=== PATIENT | female | born 1950 | race Hispanic/Latino ===

== ENCOUNTER → 2024-01-20 | Outpatient (CLI) | payer MEDICARE | END | disposition home or self-care (01) | LOC: SHCH 13:12 | PROVIDERS: ATTEND Internal Medicine Cardiovascular Disease | DX: I44.2 Atrioventricular block, complete (principal); I42.0 Dilated cardiomyopathy; Z95.0 Presence of cardiac pacemaker | CPT/HCPCS: 93306 ==

== ENCOUNTER 2024-05-27 05:50 | Day surgery (SDC) | payer MEDICARE ==
[2024-05-25 13:43] LABS: BASOPHILS # (AUTO) 0.05 K/uL (0.00-0.20); BASOPHILS % (AUTO) 0.9 % (0.0-5.0); EOSINOPHILS # (AUTO) 0.32 K/uL (0.00-0.70); EOSINOPHILS % (AUTO) 5.9 % (0.0-8.0); HEMATOCRIT 42.3 % (36-48); IMMATURE GRANULOCYTE ABSOLUTE 0.02 K/uL (0-1); LYMPHOCYTES % (AUTO) 18.8 % (21.0-51.0); MEAN CORPUSCULAR HEMOGLOBIN 30.6 pg (27.0-33.0); MEAN CORPUSCULAR HGB CONC 32.9 g/dL (32.0-36.0); MEAN CORPUSCULAR VOLUME 93.2 fL (79-99); MONOCYTES # (AUTO) 0.5 K/uL (0.1-1.0); MONOCYTES % (AUTO) 9.6 % (3.0-13.0); NEUTROPHILS # (AUTO) 3.5 K/uL (1.8-7.7); NEUTROPHILS % (AUTO) 64.4 % (40.0-77.0); PLATELET COUNT (AUTO) 187 K/uL (130-400); RED BLOOD CELL COUNT(AUTO) 4.54 MIL/uL (4.00-5.50); RED CELL DISTRIBUTION WIDTH 13.8 % (11.0-15.5); WHITE BLOOD COUNT (AUTO) 5.4 K/uL (4.8-10.8)
--- NOTE | 2024-05-25 13:50 | EKG ---
[facility] Test Date: 2024-05-25 Test Time: 13:31:29 Pat Name: NITHYA KAUR Department: [facility] Patient [place]: [id number] Room: Gender: F Carver Hand: [phone] : 1950 Requested By: SHANNAN WATTERS Order Number: [id number] Reading MD: Mary Curiel Measurements Intervals Merrill Rate: 77 P: 37 ID: [id number] QRS: -62 QRSD: 165 T: 125 QT: 434 QTc: 491 Interpretive Statements Atrial-ventricular dual-paced rhythm No previous ECG available for comparison Electronically Signed On 05-25-2024 14:02:59 CDT by Mary Curiel Please click the below link to view image of tracing.
[2024-05-25 13:53] LABS: CREATININE 1.1 mg/dL (0.5-1.0); POTASSIUM 3.2 mmol/L (3.5-5.1)
[2024-05-25 13:54] LABS: INR 1.92 (0.85-1.15); PROTHROMBIN TIME 19.1 SEC (9.6-11.6)
[2024-05-25 13:55] LABS: PARTIAL THROMBOPLASTIN TIME 35.6 SEC (26.3-35.5)
[2024-05-25 14:31] VITALS: BP 146/65; PULSE 97; RESP 18; TEMP 97.7
--- NOTE | 2024-05-26 09:31 | NUR ---
report reported coags and potassium to dr davies. ok to proceed
[~2024-05-27] VITALS: Ht 162.6 cm; Wt 87.5 kg
[2024-05-27] VITALS (8 sets, daily range): BP systolic 119–135; BP diastolic 62–72; PULSE 60–96; RESP 15–17; TEMP 97.5–97.6
[~2024-05-27 05:50] MED LIST: ASCO100031 PO; ATOR40TA69 PO; CARB15DR OP; CARV3.12 PO; CEYLON CINNAMON PO; EZET10TA48 PO; FAMO-136 PO; FURO20TA4 PO; KRIL500C PO; LATA2.5D14 OP; SACU1TAB PO; VITA-300 PO; VITA800012 PO; WARF2.5T9 PO; WARF5TAB8 PO; ZINC50TA64 PO
[2024-05-27] MEDS ORDERED: BUPIvacaine/PF 0.25% 30ML VIAL IJ ONE (07:14)
[2024-05-27] MEDS ORDERED: IOHEXOL-350 50ML VIAL IV ONE (07:14)
[2024-05-27] MEDS ORDERED: LIDOCAINE HCL 1% MDV 50ML VIAL ONE (07:14)
[2024-05-27] MEDS ORDERED: ceFAZolin SODIUM 1 GM VIAL ONE (07:15)
[2024-05-27] MEDS ORDERED: VANCOMYCIN 1G/250ML KIT 500 ML IV ONE (07:22)
[2024-05-27] MEDS: 0.9%NACL 1000ML 1,000 ML IV SCH (07:33)
[2024-05-27] MEDS ORDERED: FENTanyl CITRate PF 50 MCG/1 ML 2ML VIAL ONE ×2 (07:48→11:19)
[2024-05-27] MEDS ORDERED: MIDAZOLAM HCL 1 MG/ML 2ML VIAL ONE ×5 (07:49→11:51)
[2024-05-27] MEDS ORDERED: BACITRACIN 1 EACH PACKET TP ONE (11:05)
[2024-05-27] MEDS ORDERED: acetaMINOPHEN WITH coDEINE 1 TAB TAB PO PRN ×2 (12:00→12:30)
[2024-05-27] MEDS ORDERED: acetaMINOPHEN 500 MG TABLET PO PRN (12:00)
[2024-05-27] MEDS ORDERED: TRAM50TA4 PO (12:06)
--- NOTE | 2024-05-27 12:34 | NUR ---
PT ARRIVED TO DAY 14 PRESSURE DRESSING TO LEFT CHEST DRY INTACT. VSS NAD
--- NOTE | 2024-05-27 15:00 | NUR ---
PT DAUGHTER GIVEN VERBAL AND WRITTEN DISCHARGE INSTRUCTIONS. DRESSING CHANGES DEMONSTRATED TO ALL.
--- NOTE | 2024-05-27 16:31 | HMCIMG ---
PORTABLE CHEST RADIOGRAPH INDICATION: s/p MACHINIST BRAKE upgrade COMPARISON: None FINDINGS: hospital monitor leads overlie the field of view. Left sided dual chamber pacer and continuous leads remain in customary position. Heart size is normal. Mild calcific plaque is present along the aortic arch kaufman. The pulmonary vascularity and suzanna appear normal. No abnormal pulmonary parenchymal opacity or consolidation identified. No significant pleural effusion noted. No pneumothorax detected. IMPRESSION: No radiographic evidence for any acute cardiopulmonary process.
== END 2024-05-27 15:45 | disposition home or self-care (01) ==
LOC: DAH 05:50
PROVIDERS: ATTEND Internal Medicine Cardiovascular Disease
DX: Z45.02 Encounter for adjustment and management of automatic implantable cardiac defibrillator (principal); I44.2 Atrioventricular block, complete; I11.0 Hypertensive heart disease with heart failure; I50.42 Chronic combined systolic (congestive) and diastolic (congestive) heart failure; I42.8 Other cardiomyopathies; I87.1 Compression of vein; I48.0 Paroxysmal atrial fibrillation; E78.5 Hyperlipidemia, unspecified; E11.9 Type 2 diabetes mellitus without complications; E66.9 Obesity, unspecified; Z95.810 Presence of automatic (implantable) cardiac defibrillator; Z88.0 Allergy status to penicillin; Z68.32 Body mass index [BMI] 32.0-32.9, adult; Z79.899 Other long term (current) drug therapy
CPT/HCPCS: 80048; 85025; 85610; 85730; 36415; 93005; 33264; 33225; 33218; 82948; 71045; C1769 ×3; C1882; C1900; J3010 ×2; J7030; J0665; J2250 ×5; J3370; J3490; Q9967; A4215; A6251; A4222; A4221; A4663; A4216; A6258; A4606; A4223 ×3; 33220; 99156; 99157; J0690